=== PATIENT | male | born 1985 | race Caucasian/White ===

== ENCOUNTER 2017-09-13 17:48 | Inpatient (IN) | payer OTHER ==
[~2017-09-13] VITALS: Ht 185.4 cm; Wt 63.5 kg
--- NOTE | 2017-09-14 20:25 | NUR ---
Pre-admission assessment Patient is a 31-year old, male, seen at intake, AAOx4, no SOB and no anxiety noted at this time. Discussed with patient admission policies of the unit. Patient is coherent and able to respond to questions appropriately. Patient reported that he is homeless. Pt is ambulatory with steady gait. Pt reports using Klonopin daily and Alcohol intermittently. Pt also verbalized using Ritalin but stopped using "weeks ago." Vital signs taken and as follows: BC=249/58, P=67, O2 sat on RA=99%, RR=18, T=97.8. Pt verbalized instructions and teachings regarding disposal of narcotic and other controlled home meds, unit protocols such as taking of vital signs Q4H and handling and disposal of contraband.
[2017-09-14 21:03] LABS: *AMPHETAMINE, URINE NEGATIVE (NEGATIVE); *BARBITURATE, URINE NEGATIVE (NEGATIVE); *CANNABINOID, URINE NEGATIVE (NEGATIVE); *COCCAINE, URINE NEGATIVE (NEGATIVE); *OPIATE, URINE NEGATIVE (NEGATIVE); *PHENCYCLIDINE SCREEN,URINE NEGATIVE (NEGATIVE)
[2017-09-14] MEDS ORDERED: METH20TA9 PO (21:12)
[2017-09-14] MEDS ORDERED: [UNRECOGNIZED DRUG - CODE] OP (21:12)
[2017-09-14] MEDS ORDERED: FLUO-120 PO (21:12)
[2017-09-14] MEDS ORDERED: CLON1TAB PO (21:12)
[2017-09-14] MEDS ORDERED: LOPERAMIDE HCL 2 MG CAPSULE PO PRN ×2 (21:30)
[2017-09-14] MEDS ORDERED: ONDANSETRON 4 MG/2 ML VIAL IM PRN (21:30)
[2017-09-14] MEDS ORDERED: LORAZEPAM 2 MG/1 ML VIAL IM PRN (21:30)
[2017-09-14] MEDS ORDERED: CLONIDINE HCL 0.1 MG TABLET PO PRN (21:30)
[2017-09-14] MEDS ORDERED: DIAZEPAM 5 MG TABLET PO PRN (21:30)
[2017-09-14] MEDS ORDERED: ONDANSETRON ODT 4 MG TAB.RAPDIS SL PRN (21:30)
[2017-09-14] MEDS ORDERED: MAG HYDROX/AL HYDROX/SIMETH 30 ML LIQUID UDC PO PRN (21:30)
[2017-09-14] MEDS ORDERED: diphenhydrAMINE 50 MG CAPSULE PO PRN (21:30)
[2017-09-14] MEDS ORDERED: DIAZEPAM 10 MG TABLET PO PRN ×2 (21:30)
--- NOTE | 2017-09-14 22:00 | NUR ---
ADMISSION NOTE HT=6 FEET 1 INCH WT= 140 POUNDS B/P=114/56,T=98.1,P=78,R=16,O2 SAT=98%. CIWA=2. ADMITTING 31 Y/O MALE TO [facility] FOR BENZO DEPENDENCY.PT HAS BEEN TAKING KLONOPIN 1 MG TABLETS TID FOR THE PAST 10 YEARS.HE ALSO REPORTED TAKING VALIUM 5 MG TABLET X 1 BECAUSE "I RAN OUT OF KLONOPIN".PT ALSO REPORTS HX OF TAKING RITALIN 20 MG PO TID.HE SAID THAT HE STOPPED TAKING IT FOR SOME TIME AND DOES NOT WANT TO TAKE IT ANYMORE.PT REPORTED DRINKING WHISKEY AND SMOKING MARIJUANA 10 DAYS AGO.PT HAS PMH OF ANXIETY,DEPRESSION AND ADHD.NO HX OF SEIZURES NOTED.PT DENIES ANY ALLERGIES TO FOOD OR MEDICATIONS.PT IS A/O X 4,PLACED ON REGULAR DIET AND FULL CODE STATUS.SKIN IS INTACT,WARM AND DRY TO TOUCH;BREATHING IS EVEN AND NON LABORED;NO C/O SOB/WHEEZING NOTED;ABDOMEN IS SOFT AND PALPABLE WITH B/S PRESENT X 4.NO C/O N/V/D OR CONSTIPATION NOTED.PT ORIENTED TO ROOM AND UNIT,CARE PLAN AND SAFETY CHECKS INITIATED,DR URRUTIA NOTIFIED.EDUCATION PROVIDED ON HEP C,SMOKING CESSATION,SUBSTANCE ABUSE,SEIZURE D/O AND FALL RISK IN HOSPITALS. ALL SAFETY MEASURES IN PLACE PER HOSPITAL POLICY,BED IS LOCKED IN THE LOWEST POSITION WITH SIDE RAILS UP AND PADDED X 2.CALL LIGHT WITHIN REACH.NO C/O PAIN OR S/S OF ACUTE DISTRESS NOTED.WILL CONTINUE TO MONITOR FOR SAFETY. HX OF DRUG ABUSE KLONOPIN 1 MG PO TID FOR THE PAST 10 YEARS. LAST TAKEN 1 MG PO ON 09/14/17 AT 0900. PT HAS NO HX OF DETOX.THIS IS HIS FIRST TIME IN DETOX. PT HAS PLANS TO GO TO "[facility]" IN [place], FOR 90 DAYS,UPON DISCHARGE.
[2017-09-14] MEDS ORDERED: DIAZEPAM 10 MG TABLET ONE (22:22)
[2017-09-14 22:31] LABS: BASOPHILS % (AUTO) 0.4 % (0.0-2.0); EOSINOPHILS # (AUTO) 0.1 K/uL (0.0-0.7); EOSINOPHILS % (AUTO) 1.3 % (0.0-7.0); HEMATOCRIT 45.3 % (40-50); HEMOGLOBIN 14.5 G/DL (14.0-18.0); LYMPHOCYTES # (AUTO) 3.3 K/UL (0.8-4.8); MEAN CORPUSCULAR HGB CONC 32 g/dL (32.0-37.0); MEAN CORPUSCULAR VOLUME 81.1 FL (82.0-92.0); MONOCYTES # (AUTO) 0.6 K/UL (0.1-1.30); MONOCYTES % (AUTO) 7.9 % (0.0-11.0); NEUTROPHILS # (AUTO) 3.7 K/UL (1.8-8.9); NEUTROPHILS % (AUTO) 47.4 % (38.5-71.5); PLATELET COUNT (AUTO) 191 K/UL (150-450); RED BLOOD CELL COUNT(AUTO) 5.58 MIL/UL (4.7-6.1); WHITE BLOOD COUNT (AUTO) 7.7 K/UL (4.0-11.2)
[2017-09-14 22:46] LABS: ALANINE AMINOTRANSFERASE 21 U/L (16-63); ALKALINE PHOSPHATASE 67 U/L (50-136); ASPARTATE AMINOTRANSFERASE 15 U/L (15-37); BILIRUBIN,TOTAL 0.4 mg/dL (0.2-1.0); CARBON DIOXIDE 32 mmol/L (21-32); CHLORIDE 104 mmol/L (98-107); CREATININE 0.9 mg/dL (0.6-1.3); GLUCOSE 92 mg/dL (74-106); MAGNESIUM 2.2 mg/dL (1.8-2.4); POTASSIUM 4.4 mmol/L (3.5-5.1); TOTAL PROTEIN, SERUM 8.1 g/dL (6.4-8.2); UREA NITROGEN, BLOOD 25 mg/dL (7-18)
[2017-09-14 22:57] LABS: ETHANOL < 3 MG/DL (0-0)
[2017-09-14] MEDS ORDERED: DIAZEPAM 10 MG TABLET PO ONE (23:00)
[2017-09-15] VITALS: BP 110/62
[2017-09-15 04:00] VITALS: BP 114/69
--- NOTE | 2017-09-15 06:44 | NUR ---
END OF SHIFT PT IS 31 Y/O MALE ADMITTED TO [facility] FOR BENZO DEPENDENCY.PT HAS BEEN TAKING KLONOPIN 1 MG TABLETS TID FOR THE PAST 10 YEARS.HE ALSO REPORTED TAKING VALIUM 5 MG TABLET X 1 BECAUSE "I RAN OUT OF KLONOPIN".PT ALSO REPORTS HX OF TAKING RITALIN 20 MG PO TID.HE SAID THAT HE STOPPED TAKING IT FOR SOME TIME AND DOES NOT WANT TO TAKE IT ANYMORE.PT REPORTED DRINKING WHISKEY AND SMOKING MARIJUANA 10 DAYS AGO.PT HAS PMH OF ANXIETY,DEPRESSION AND ADHD.NO HX OF SEIZURES NOTED.PT DENIES ANY ALLERGIES TO FOOD OR MEDICATIONS.PT IS A/O X 4,PLACED ON REGULAR DIET AND FULL CODE STATUS. NO PRN MEDS GIVEN LAST NIGHT. LAST CIWA=1.PT SLEPT 4 HRS,FLUID INTAKE WAS 1500 MLS,VOIDED X 3,B/M X 1. ALL SAFETY MEASURES IN PLACE PER HOSPITAL POLICY, CALL LIGHT WITHIN REACH NO C/O PAIN OR S/S OF ACUTE DISTRESS NOTED.WILL CONTINUE TO MONITOR FOR SAFETY.
[2017-09-15 08:00] VITALS: BP 118/60
--- NOTE | 2017-09-15 08:10 | NUR ---
START OF SHIFT: RECEIVED PT A/O X 4. HE PRESENTS WITH ANXIOUS MOOD AND CONGRUENT AFFECT. HE C/O TROUBLE FORMING SENTENCES AND ANXIETY ALONG WITH RESTLESSNESS AND IRRITABILITY. CIWA 7. PRN VALIUM 5 MG PO GIVEN ORDERED. WILL MONITOR EFFECTIVENESS. ENCOURAGED INCREASED FLUIDS. PPD PLANTED O LFA. WILL CONTINUE TO PROVIDE SAFE AND SUPPORTIVE ENVIRONMENT.
[2017-09-15] MEDS: GABAPENTIN 300 MG CAPSULE PO SCH ×2 (08:12→20:15)
[2017-09-15] MEDS ORDERED: TUBERCULIN,PURIF.PROT.DERIV. 5 TU/0.1 ML TEST ID ONE (09:00)
--- NOTE | 2017-09-15 09:10 | NUR ---
PRN VALIUM EFFECTIVE. CIWA 3. WILL CONTINUE TO MONITOR AND OFFER SUPPORT.
--- NOTE | 2017-09-15 10:35 | NUR ---
Therapist prompted client to attend groups today. Client agreed to attend groups.
[2017-09-15] MEDS: DIAZEPAM 10 MG TABLET PO SCH ×3 (11:51→20:15)
[2017-09-15 12:00] VITALS: BP 119/50
--- NOTE | 2017-09-15 13:45 | NUR ---
Activity Group Note: Client participated in "Sequence" activity. Intervention goal was to increase task focus and leisure skills. Client's mood appeared to be euthymic with congruent affect. Client appeared distracted but was able to understand and complete the task. He stated, "I just want to get out of my room...this is great." Client initiated conversation with peers throughout activity. Client benefits from leisure activities and social interaction with peers. beater worker helper will continue to encourage participation in activity group.
[2017-09-15] MEDS: FLUOXETINE HCL 20 MG CAPSULE PO SCH (15:04)
[2017-09-15 16:00] VITALS: BP 118/63
--- NOTE | 2017-09-15 18:50 | NUR ---
START OF SHIFT: PT STARTED VALIUM TAPER TODAY. LAST CI 5 HE STATES THE DETOX MEDS ARE EFFECTIVE. HE REPORTED ANXIETY AND RESTLESSNESS INTERMITTENTLY THROUGHOUT SHIFT. HE ATTENDED A GROUP AND WAS COMPLIANT WITH INCREASED FLUIDS. WILL PASS SHIFT REPORT TO [facility] NIGHT NURSE. Addendum: 09/15/17 at 1853 by MICHELLE MENESES RN NOTE SHOULD READ END OF SHIFT
[2017-09-15 20:00] VITALS: BP 115/60
--- NOTE | 2017-09-15 20:00 | NUR ---
Start of Shift Pt is a 31 year old male admitted for Benzo dependence, placed on Valium taper. Pt reported using Klonopin 1mg TID and Ritalin 20mg TID. PMH: anxiety, depression and ADHD. NKA, regular diet, fall/seizure precautions and full code. Upon assessment, pt reports feeling anxious, restless, reports feeling chills, respirations even/unlabored, denies SOB/chest pain, denies n/v/d. Medications due. Safety measures in place, call light within reach, side rails up x2, bed locked and in low position. Will continue to monitor.
[2017-09-15] MEDS ORDERED: TRAZODONE 50 MG TABLET PO ONE (23:00)
--- NOTE | 2017-09-15 23:35 | NUR ---
PRN Administration Pt requests aid for sleep. Trazodone 50mg x1 administered as ordered. Safety measures in place, Will continue to monitor.
[2017-09-16] VITALS: BP 116/56
--- NOTE | 2017-09-16 | NUR ---
Vital Signs/CIWA deferred BP 116/56, pulse 69, resp 18, SpO2 98% room air, temp 98, no pain CIWA deferred due to pt sleeping, to assess while pt is awake as ordered. Safety measures in place, will continue to monitor.
--- NOTE | 2017-09-16 00:35 | NUR ---
PRN Reassessment Upon reassessment of Trazodone, pt is in room resting with eyes closed, respirations even/unlabored. Safety measures in place. Will continue to monitor.
[2017-09-16 04:00] VITALS: BP 121/62
--- NOTE | 2017-09-16 04:00 | NUR ---
Vital Signs/CIWA deferred BP 121/62, pulse 75, resp 16, SpO2 99% room air, temp 97.9, no pain CIWA deferred due to pt sleeping, to assess while pt is awake as ordered. Safety measures in place, will continue to monitor.
--- NOTE | 2017-09-16 07:00 | NUR ---
End of Shift Pt is a 31 year old male admitted for Benzo dependence, placed on Valium taper. Pt reported using Klonopin 1mg TID and Ritalin 20mg TID. PMH: anxiety, depression and ADHD. NKA, regular diet, fall/seizure precautions and full code. During shift, pt reported feeling anxious, restless, reported feeling chills scheduled taper medications administered, CIWA 6. Trazodone 50mg x1 administered as ordered. Pt slept for 6 hours, intake of 1000 ml PO, voids x2 and stool x1. Safety measures in place, call light within reach, side rails up x2, bed locked and in low position. Endorsed to day shift nurse.
--- NOTE | 2017-09-16 07:01 | NUR ---
Star of Shift Notes: Received patient in his room. Alert and verbally responsive. Able to make his needs known. Respirations even and unlabored. No SOB noted. SKin warm and dry to touch. Abdomen soft and non-distended. BS (+) in all 4 quadrants. No complains of N/V/D or constipation noted. Bladder non-distended. BS (+) in all 4 quadrants. No complains of dysuria. Ambulatory ad kumar with steady gait. Patient is a 31 year old male admitted for BZO and ritalin dependence who was placed on a 5-day Valium taper as ordered. No adverse reactions noted. Prior to admission, patient was using 1 mg of Klonopin TID and 20 mg of Ritalin TID. Has past medical hx of anxiety, depression, and ADHD. NKA. FULL CODE. Regular diet. Educated patient on his current plan of care for the day and his medication regimen. Encouraged oral fluid intake and encouraged group participation to learn new skills to prevent relapse. Will continue to monitor
[2017-09-16 07:07] LABS: HEPATITIS B SURFACE AG Negative (Negative)
[2017-09-16 08:00] VITALS: BP 100/63
[2017-09-16] MEDS: GABAPENTIN 300 MG CAPSULE PO SCH ×2 (08:14→20:43)
[2017-09-16] MEDS: FLUOXETINE HCL 20 MG CAPSULE PO SCH (08:14)
[2017-09-16] MEDS: DIAZEPAM 5 MG TABLET PO SCH ×4 (08:14→20:43)
[2017-09-16 12:00] VITALS: BP 100/57
[2017-09-16] MEDS: IBUPROFEN 600 MG TABLET PO PRN (13:30)
--- NOTE | 2017-09-16 13:30 | NUR ---
Motrin 600 mg PO given: Patient complained of 5/10 headache. Non-pharmacological interventions were provided but ineffective. Medicated patient with Motrin 600 mg PO as ordered. Will monitor for effectiveness.
--- NOTE | 2017-09-16 14:30 | NUR ---
Re-assessment: Per patient, PRN Motrin was effective in reducing patient's headache. PL 0/10.
--- NOTE | 2017-09-16 15:00 | NUR ---
Psych MD Communication: Notified Dr. Boyle (covering for Dr. Yeh) regarding patient's request for Trazodone. Orders noted and carried out.
[2017-09-16 16:00] VITALS: BP 119/75
--- NOTE | 2017-09-16 18:52 | NUR ---
End of Shift Notes: Patient continues to be on 5-day Valium taper as ordered. No adverse reactions noted. Patient is tolerating taper well. No adverse reactions noted. VS monitored closely. No significant abnormalities noted. Withdrawal symptoms were closely monitored. Initial CIWA 6, patient presented with tremors, anxiety and agitation. Last CIWA 4. Per patient, Valium has been effective in reducing her withdrawal symptoms. Participated in group and activities. Medicated patient with Motrin 600 mg PO as ordered for headache at 1330 with help after 1 hour. Compliant with care and treatment. All needs met and attended. Will continue to monitor closely.
--- NOTE | 2017-09-16 19:30 | NUR ---
START OF SHIFT Pt is a 31 y/o male admitted on 09/14/17 for benzo dependence. Pt was dependent on clonazepam 3-4 mg daily for 10 years. Pt is full code, NKA, regular diet, and fall/seizure precautions. No known seizure hx. Pt reports PMH of anxiety, depression and ADHD. Pt is on a 5 day Valium taper started on 09/15/17, tolerating well. Upon assessment pt is walking in hallway and presents with anxiety, restlessness, mild sweats, difficulty concentrating, abdominal "discomfort," anhedonia, headache, decreased appetite and mild sweats. Respirations 16, even and unlabored. Denies N/V/D. Denies chest pain or SOB. Medications due. Safety measures in place. Call light within reach. Will continue to monitor.
[2017-09-16 20:00] VITALS: BP 123/77
[2017-09-16] MEDS: MIRALAX 17 GM POWD.PACK PO PRN (20:43)
[2017-09-16] MEDS: ACETAMINOPHEN 325 MG TABLET PO PRN (20:43)
--- NOTE | 2017-09-16 20:43 | NUR ---
PRN TYLENOL 650 MG AND MIRALAX ADMINISTRATION Pt requests aid for BM, reports last BM was yesterday but it was small. Pt reports abdominal "discomfort" 03/31 and requests Tylenol. Denies N/V/D. Denies wanting Bentyl, states feeling is not similar to abdominal cramps.
--- NOTE | 2017-09-16 21:43 | NUR ---
PRN TYLENOL AND MIRALAX REASSESSMENT Pt reports improvement in pain 01/01. Will continue to monitor for BM. Safety measures in place. Call light within reach.
[2017-09-16] MEDS: TRAZODONE 50 MG TABLET PO PRN (21:53)
--- NOTE | 2017-09-16 21:53 | NUR ---
PRN TRAZODONE 25 MG ADMINISTRATION Pt requests Trazodone for sleep aid. Safety measures in place Call light within reach. Will continue to monitor.
--- NOTE | 2017-09-16 22:53 | NUR ---
PRN TRAZODONE REASSESSMENT Pt is awake in rec room watching TV, but states he is "more tired" and will sleep soon. Will continue to monitor.
[2017-09-16] MEDS: NAPHAZOLINE EACHEYE PRN (23:17)
--- NOTE | 2017-09-16 23:17 | NUR ---
PRN ROHTO COOL EYE DROPS ADMINISTRATION Pt requests eye drops for eye dryness and redness. Safety measures in place. Call light within reach. Will continue to monitor.
--- NOTE | 2017-09-17 | NUR ---
CIWA DEFERRED, VITALS REFUSED Pt is laying in bed with eyes closed. Respirations 16, even and unlabored. Safety measures in place Call light within reach. Will continue to monitor.
--- NOTE | 2017-09-17 04:00 | NUR ---
CIWA DEFERRED, VITALS REFUSED Pt is laying in bed with eyes closed. Vitals refused, CIWA deferred, to be assessed when pt is fully awake per orders. Respirations 16, even and unlabored. Safety measures in place Call light within reach. Will continue to monitor.
--- NOTE | 2017-09-17 07:22 | NUR ---
END OF SHIFT Pt is a 31 y/o male admitted on 09/14/17 for benzo dependence. Pt was dependent on clonazepam 3-4 mg daily for 10 years. Pt is full code, NKA, regular diet, and fall/seizure precautions. No known seizure hx. Pt reports PMH of anxiety, depression and ADHD. Pt is on a 5 day Valium taper started on 09/15/17, tolerating well. Pt presented with anxiety, restlessness, mild sweats, difficulty concentrating, abdominal "discomfort," anhedonia, headache, decreased appetite and mild sweats. Scheduled medications and PRN Tylenol, Miralax, Trazodone, and eye drops administered, effective in S/S of withdrawal as verbalized by pt. Last CIWA 3 at 1999, all other CIWAs deferred d/t pt laying in bed with eyes closed throughout the night. Pt slept 6 hours. Intake 2000 ml, void x 3, stool x 0. Safety measures in place. Call light within reach. Pts needs have been met. Endorsed to day shift nurse.
--- NOTE | 2017-09-17 07:32 | NUR ---
Start Of Shift Report received. Patient Pt is a 31 y/o male admitted on 09/14/17 for benzo dependence, under the care of Dr. Oropeza. Pt is on a 5 day Valium taper started on 09/15/17, tolerating well. Full Code, Regular Diet, No known allergies, continues on fall precautions and seizure precautions, skin noted intact. Past Medical history noted as: anxiety, depression and ADHD. Pts last CIWA score was 3 taken at 0400. Patient was given PRN Tylenol, Miralax, Trazodone and eye drops with Medications noted to be effective. Pt slept for a total of 6 hours last night, encouraged pt to drink more fluids to help facilitate the detox process. All safety measures in place, call light within reach will continue to monitor and provide support.
[2017-09-17 08:00] VITALS: BP 115/70
[2017-09-17] MEDS: GABAPENTIN 300 MG CAPSULE PO SCH ×2 (08:35→20:55)
[2017-09-17] MEDS: DIAZEPAM 5 MG TABLET PO SCH ×3 (08:35→20:55)
[2017-09-17] MEDS: ACETAMINOPHEN 325 MG TABLET PO PRN (08:57)
[2017-09-17] MEDS: FLUOXETINE HCL 20 MG CAPSULE PO SCH (08:57)
[2017-09-17 12:00] VITALS: BP 121/75
[2017-09-17] MEDS: HYDROXYZINE PAMOATE 25 MG CAPSULE PO PRN (14:00)
[2017-09-17] MEDS ORDERED: GABAPENTIN 300 MG CAPSULE PO SCH ×2 (15:00→21:00)
--- NOTE | 2017-09-17 15:16 | NUR ---
THerapist prompted client to attend group
[2017-09-17 16:00] VITALS: BP 128/68
[2017-09-17] MEDS ORDERED: DIAZEPAM 5 MG TABLET PO ONE (18:00)
--- NOTE | 2017-09-17 18:54 | NUR ---
End Of Shift Pt is a 31 y/o male admitted on 09/14/17 for benzo dependence, under the care of Dr. Oropeza. Pt is on a 5 day Valium taper started on 09/15/17, tolerating well. Full Code, Regular Diet, No known allergies, continues on fall precautions and seizure precautions, skin noted intact. , VS monitored closely q 4 hours. Withdrawal symptoms were closely monitored. Initial CIWA 5. Patient encouraged adequate PO fluid intake as tolerated. Patient presented with tremors and anxiety during the day. Last CIWA 3. Per patient, Valium has been helping him with his withdrawal symptoms. Pt ate all of his meals. Pt received PRN Vistaril for anxiety, and a onetime dose of Valium 5mg, medication effective. Patient encouraged to attend group therapies/sessions to learn new coping skills to recent relapse, patient denies SI/HI. Participated in group and therapy sessions. All needs met and attended. All safety measures in place endorsement given to shift superintendent caustic cresylate.
--- NOTE | 2017-09-17 19:30 | NUR ---
START OF SHIFT Pt is a 31 y/o male admitted on 09/14/17 for benzo dependence. Pt was dependent on clonazepam 3-4 mg daily for 10 years. Pt is full code, NKA, regular diet, and fall/seizure precautions. No known seizure hx. Pt reports PMH of anxiety, depression and ADHD. Pt is on a 5 day Valium taper started on 09/15/17, tolerating well. Upon assessment pt is walking in hallway and presents with anxiety, restlessness, mild sweats, difficulty concentrating, abdominal discomfort, anhedonia, dysphoria, mild headache, body aches, sensitivity to sound, dry eyes. Respirations 16, even and unlabored. Denies N/V/D. Denies chest pain or SOB. Medications due. Safety measures in place. Call light within reach. Will continue to monitor.
[2017-09-17 20:00] VITALS: BP 121/65
[2017-09-17] MEDS: NAPHAZOLINE EACHEYE PRN ×2 (20:40→22:52)
[2017-09-17] MEDS: IBUPROFEN 600 MG TABLET PO PRN (20:55)
[2017-09-17] MEDS: MIRALAX 17 GM POWD.PACK PO PRN (20:55)
--- NOTE | 2017-09-17 20:55 | NUR ---
PRN MOTRIN 600 MG, MIRALAX, AND EYE DROPS ADMINISTRATION Pt reports discomfort in abdomen 03/01 (denies pavithra, reports it is not described as cramps). Pt reports having one small stool in the morning and states "I typically go more frequent and they are much bigger," and requests Miralax. Pt also reports having dry eyes/redness and requests his eye drops for comfort. Safety measures in place. Call light within reach. Will continue to monitor.
--- NOTE | 2017-09-17 21:55 | NUR ---
PRN MOTRIN, MIRALAX AND EYE DROPS REASSESSMENT Pt reports improvement in abdominal discomfort 12/01. Pt reported immediate improvement after eye drop administration. Will continue to monitor for BM.
--- NOTE | 2017-09-17 22:00 | NUR ---
NEGATIVE TB Read TB in left forearm-negative. Administered on 09/15/17 at 0900.
[2017-09-17] MEDS: TRAZODONE 50 MG TABLET PO PRN (22:44)
[2017-09-18] VITALS: BP 125/68
--- NOTE | 2017-09-18 04:00 | NUR ---
CIWA DEFERRED AND VITALS REFUSED Pt is laying in bed with eyes closed, vitals refused, CIWA deferred, to be assessed when pt is fully awake per orders. Respirations 16, even and unlabored. Safety measures in place. Call light within reach. Will continue to monitor.
--- NOTE | 2017-09-18 07:27 | NUR ---
END OF SHIFT Pt is a 31 y/o male admitted on 09/14/17 for benzo dependence. Pt was dependent on clonazepam 3-4 mg daily for 10 years. Pt is full code, NKA, regular diet, and fall/seizure precautions. No known seizure hx. Pt reports PMH of anxiety, depression and ADHD. Pt is on a 5 day Valium taper started on 09/15/17, tolerating well. Pt presented with anxiety, restlessness, mild sweats, difficulty concentrating, abdominal discomfort, anhedonia, dysphoria, mild headache, body aches, sensitivity to sound. Scheduled medications and PRN Motrin, Trazodone, Miralax, and eye drops administered, effective in S/S of withdrawal AEB CIWA 7 lowered to CIWA 4 during shift. Pt verbalized improvement in all S/S of withdrawal. Pt slept 5 hours. Intake 700 ml, void x 1, stool x 1. Safety measures in place. Call light within reach. Pts needs have been met. Endorsed to day shift nurse.
--- NOTE | 2017-09-18 07:30 | NUR ---
Start Of Shift Report received. Patient Pt is a 31 y/o male admitted on 09/14/17 for benzo dependence, under the care of Dr. Oropeza. Pt is on a 5 day Valium taper started on 09/15/17, tolerating well. Full Code, Regular Diet, No known allergies, continues on fall precautions and seizure precautions, skin noted intact. Past Medical history noted as: anxiety, depression and ADHD. Pts last CIWA score was 4 taken at 0400. Patient was given PRN Motrin Miralax, Trazodone and eye drops with Medications noted to be effective. Pt slept for a total of 5 hours last night, encouraged pt to drink more fluids to help facilitate the detox process. All safety measures in place, call light within reach will continue to monitor and provide support.
[2017-09-18 08:00] VITALS: BP 108/69
[2017-09-18] MEDS: GABAPENTIN 300 MG CAPSULE PO SCH ×3 (09:22→20:10)
[2017-09-18] MEDS: DIAZEPAM 5 MG TABLET PO SCH ×2 (09:22→20:10)
[2017-09-18] MEDS: HYDROXYZINE PAMOATE 25 MG CAPSULE PO PRN ×2 (09:22→17:26)
[2017-09-18] MEDS: FLUOXETINE HCL 20 MG CAPSULE PO SCH (09:23)
[2017-09-18] MEDS: IBUPROFEN 600 MG TABLET PO PRN ×2 (09:23→20:10)
[2017-09-18 12:00] VITALS: BP 112/76
[2017-09-18] MEDS ORDERED: MAGNESIUM CITRATE 296 ML BOTTLE PO ONE (13:00)
[2017-09-18] MEDS ORDERED: CLONIDINE HCL 0.1 MG TABLET PO PRN (13:00)
[2017-09-18] MEDS: SENNOSIDES 1 TABLET PO SCH ×2 (13:54→21:00)
[2017-09-18] MEDS: ACETAMINOPHEN 325 MG TABLET PO PRN (15:03)
[2017-09-18 16:00] VITALS: BP 124/71
--- NOTE | 2017-09-18 18:56 | NUR ---
End Of Shift Pt is a 31 y/o male admitted on 09/14/17 for benzo dependence, under the care of Dr. Oropeza. Pt is on a 5 day Valium taper started on 09/15/17, tolerating well. Full Code, Regular Diet, No known allergies, continues on fall precautions and seizure precautions, skin noted intact. VS monitored closely q 4 hours. Withdrawal symptoms were closely monitored. Initial CIWA 5. Patient encouraged adequate PO fluid intake as tolerated. Patient presented with tremors and anxiety during the day. Last CIWA 3. Per patient, Valium has been helping him with his withdrawal symptoms. Pt ate all of his meals. Pt received PRN Motrin, Tylenol, Vistaril for anxiety, and a onetime dose of Valium 5mg, medication effective. Patient encouraged to attend group therapies/sessions to learn new coping skills to recent relapse, patient denies SI/HI. Participated in group and therapy sessions. All needs met and attended. All safety measures in place endorsement given to shift supervisor.
--- NOTE | 2017-09-18 19:30 | NUR ---
START OF SHIFT Pt is a 31 y/o male admitted on 09/14/17 for benzo dependence. Pt was dependent on clonazepam 3-4 mg daily for 10 years. Pt is full code, NKA, regular diet, and fall/seizure precautions. No known seizure hx. Pt reports PMH of anxiety, depression and ADHD. Pt is on a 5 day Valium taper started on 09/15/17, tolerating well. Upon assessment pt presents with anxiety, restlessness, difficulty concentrating, abdominal discomfort, diarrhea, anhedonia, dysphoria, mild headache, body aches, sensitivity to sound, dry eyes, fatigue, agitation, sense of panic, "skin crawling." Respirations 16, even and unlabored. Denies N/V. Denies chest pain or SOB. Medications due. Safety measures in place. Call light within reach. Will continue to monitor.
[2017-09-18 20:00] VITALS: BP 109/58
[2017-09-18] MEDS: DICYCLOMINE HCL 20 MG TABLET PO PRN (20:10)
--- NOTE | 2017-09-18 20:10 | NUR ---
KAL CORTEZ AND ADAM, SCHEDULED SENOKOT HELD Pt reports having multiple episodes of diarrhea and complains of pain in abdomen and anus area r/t diarrhea. Pt also reports having generalized discomfort. Pain overall 03/31. Scheduled Senokot held d/t present diarrhea. Safety measures in place. Call light within reach. Will continue to monitor.
--- NOTE | 2017-09-18 21:10 | NUR ---
PRN ADAM AND DIEGO REASSESSMENT Pt reports overall improvement in pain to 3/10, which pt states is tolerable. Pt reports still having discomfort r/t diarrhea. Safety measures in place. Call light within reach. Will continue to monitor.
[2017-09-18] MEDS: NAPHAZOLINE EACHEYE PRN (21:18)
--- NOTE | 2017-09-18 21:18 | NUR ---
PRN EYE DROP ADMINISTRATION Pt complains of eye redness/dryness and requests eye drops. Pt reports immediate relief. Will continue to monitor.
[2017-09-18] MEDS: TRAZODONE 50 MG TABLET PO PRN (23:38)
--- NOTE | 2017-09-18 23:38 | NUR ---
X 1 5 MG VALIUM AND PRN TRAZODONE ADMINISTRATION CIWA 12. One time order for Valium 5 mg ordered. Pt presents with anxiety, agitation, sweats, mild tremors, restlessness, sensitivity to sounds, loose thoughts. Pt also requests sleep aid. Safety measures in place. Call light within reach. Will continue to monitor.
[2017-09-18] MEDS ORDERED: DIAZEPAM 5 MG TABLET PO ONE (23:45)
[2017-09-18] MEDS ORDERED: DIAZEPAM 5 MG TABLET ONE (23:51)
[2017-09-19] VITALS: BP 121/70
--- NOTE | 2017-09-19 00:38 | NUR ---
5 MG VALIUM X 1 AND PRN TRAZODONE REASSESSMENT Pt is laying in bed watching TV, appears drowsy. Pt verbalizes overall improvement in S/S of withdrawal, but anxiety and visual disturbances are present. CIWA 5. Pt states he will likely fall asleep "very soon." Safety measures in place. Call light within reach. Will continue to monitor.
--- NOTE | 2017-09-19 04:00 | NUR ---
VITALS REFUSED AND CIWA DEFERRED Pt is laying in bed with eyes closed, CIWA deferred, to be assessed when pt is fully awake per orders. Pt refused vitals. Respirations 16, even and unlabored. Safety measures in place. Call light within reach. Will continue to monitor.
--- NOTE | 2017-09-19 07:10 | NUR ---
END OF SHIFT Pt is a 31 y/o male admitted on 09/14/17 for benzo dependence. Pt was dependent on clonazepam 3-4 mg daily for 10 years. Pt is full code, NKA, regular diet, and fall/seizure precautions. No known seizure hx. Pt reports PMH of anxiety, depression and ADHD. Pt is on a 5 day Valium taper started on 09/15/17, tolerating well. Pt presented with anxiety, restlessness, difficulty concentrating, abdominal discomfort, diarrhea, anhedonia, dysphoria, mild headache, sweats, body aches, sensitivity to sound, visual disturbances, mil fine tremors, dry eyes, fatigue, agitation, sense of panic, "skin crawling." Scheduled medications, x1 5 mg Valium and PRN Bentyl, Motrin and eye drops administered, effective in S/S of withdrawal AEB CIWA 12 lowered to 5 during shift. Scheduled Senokot held d/t diarrhea. Pt slept 6 hours. Intake 1514 ml, void x 3, stool x 0. Safety measures in place. Call light within reach. Pts needs have been met. Endorsed to day shift nurse.
--- NOTE | 2017-09-19 07:36 | NUR ---
Start of shift note; Received report from night nurse. 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 Patient was placed on a 5 day Valium taper. Patient reported history of anxiety, depression, ADHD. NKA, on regular diet and on full code status. Patient last CIWA is 5 at 0400. PRN Bentyl, Motrin were given last night both noted to be effective. All safety measures secured. Will continue to monitor patient.
[2017-09-19 08:00] VITALS: BP 102/62
[2017-09-19] MEDS: GABAPENTIN 300 MG CAPSULE PO SCH ×3 (08:04→20:23)
[2017-09-19] MEDS: DICYCLOMINE HCL 20 MG TABLET PO PRN (08:04)
[2017-09-19] MEDS: FLUOXETINE HCL 20 MG CAPSULE PO SCH (08:04)
[2017-09-19] MEDS: IBUPROFEN 600 MG TABLET PO PRN ×2 (08:04→20:23)
--- NOTE | 2017-09-19 08:04 | NUR ---
PRN medications; Patient is complaining of stomach cramps and generalized pain rated 6/10. PRN Bentyl 20mg PO given for ABD spasms/cramps and PRN Ibuprofen 600mg PO given for pain. Will continue to monitor patient for effectiveness of medication.
[2017-09-19] MEDS ORDERED: DIAZEPAM 5 MG TABLET PO SCH (09:00)
--- NOTE | 2017-09-19 09:04 | NUR ---
Re-assessment; Patient is AOX4. Patient denies ABD cramps and denies pain at this time. PRN medications noted to be effective.
[2017-09-19 12:00] VITALS: BP 104/63
--- NOTE | 2017-09-19 14:35 | NUR ---
Therapist prompted client about group times. Client stated he would attend all groups today.
--- NOTE | 2017-09-19 15:37 | NUR ---
PRN medication; Patient appears agitated and anxious. Relaxation techniques observed, noted to be ineffective. Patient refused to take Vistaril for anxiety. PRN Clonidine 0.1mg PO given for agitation and ADHD as per MD order. Will continue to monitor patient.
[2017-09-19 16:00] VITALS: BP 106/59
--- NOTE | 2017-09-19 16:37 | NUR ---
Re-assessment; Patient stated "medication helped me, i feel better". PRN medication noted to be effective.
[2017-09-19] MEDS: ACETAMINOPHEN 325 MG TABLET PO PRN (17:28)
[2017-09-19] MEDS: HYDROXYZINE PAMOATE 25 MG CAPSULE PO PRN (17:28)
--- NOTE | 2017-09-19 17:37 | NUR ---
PRN medication; Patient is complaining of generalized pain rated 6/10, pain is causing him to have anxiety. Relaxation techniques ineffective. PRN Tylenol 650mg PO given for pain and Vistaril PO given as ordered for anxiety. will closely monitor patient.
--- NOTE | 2017-09-19 18:02 | NUR ---
End of shift note; Patient is AOX4. 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 Patient was placed on a 5 day Valium taper. Patient reported history of anxiety, depression, ADHD. NKA, on regular diet and on full code status. Patient's last CIWA score is 2 at 1600. Patient remained compliant with treatment plan and medication regime. Medications were effective in reducing withdrawal symptoms. Patient is medically cleared for discharge tomorrow. All safety measures secured. Met all needs.
--- NOTE | 2017-09-19 18:37 | NUR ---
Re-assessment; Patient denies pain at htis time, PRN Tylenol noted to be effective. Patient is calm and comfortable at this time, no further anxiety noted, PRN Vistaril noted to be effective.
--- NOTE | 2017-09-19 19:35 | NUR ---
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 Patient has a medical history of anxiety, depression and ADHD. Patient is FULL code, NKA, and on a regular diet. Patient has completed a 5 day Ativan taper, tolerated well, and is scheduled for discharge tomorrow. Upon assessment patient is alert and oriented x4, breathing is even and unlabored, no distress noted at this time. Patient is on fall and seizure precautions with no past history of seizure. Safety measures are in place, patient's bed locked in low position, side rails up x2, call light within reach. Will continue to monitor.
[2017-09-19 20:00] VITALS: BP 98/52
--- NOTE | 2017-09-19 20:23 | NUR ---
PRN MOTRIN Patient complains of mild to moderate stomach cramps, 4/10, and requested PRN Motrin for relief. PRN Motrin was given PO at 2022. Patient's breathing is even and unlabored, safety measures in place. Will reassess in one hour.
[2017-09-19] MEDS: SENNOSIDES 1 TABLET PO SCH (21:00)
--- NOTE | 2017-09-19 21:23 | NUR ---
PRN MOTRIN REASSESSMENT Patient reports relief from stomach cramps, rates pain 0/10. PRN Motrin was effective. Safety measures in place, call light within reach, will continue to monitor.
[2017-09-19] MEDS: NAPHAZOLINE EACHEYE PRN (21:26)
--- NOTE | 2017-09-19 21:26 | NUR ---
PRN ROHTO COOL LUBRICANT EYE DROPS Patient complains of dry, red eyes and requests lubricant eye drops. One drop of Rohto Cool lubricant eye drop administered to each eye. Safety measures in place, call light within reach. Will reassess in one hour.
--- NOTE | 2017-09-19 21:43 | NUR ---
PRN TRAZODONE Patient complains of inability to sleep. PRN Trazodone 50mg one time dose given PO. Safety measures in place, call light within reach, will reassess in one hour.
[2017-09-19] MEDS ORDERED: TRAZODONE 50 MG TABLET PO ONE (21:45)
--- NOTE | 2017-09-19 22:26 | NUR ---
KAL FINE COOL REASSESSMENT Patient reports that his eyes are no longer dry, eye redness has dissipated; eye drops effective. Safety measures in place. Will continue to monitor.
--- NOTE | 2017-09-19 22:43 | NUR ---
PRN TRAZODONE REASSESSMENT Patient has fallen asleep, resting in bed with eyes closed, respirations 16/min, even and unlabored. Safety measures in place, call light within reach, will continue to monitor.
[2017-09-20] VITALS: BP 103/48
[2017-09-20] MEDS: HYDROXYZINE PAMOATE 25 MG CAPSULE PO PRN ×2 (00:11→08:29)
--- NOTE | 2017-09-20 00:12 | NUR ---
PRN Vistaril Pt reports feeling anxious and unable to relax and fall asleep. Encouraged relaxation. PRN Vistaril administered.
--- NOTE | 2017-09-20 01:12 | NUR ---
PRN VISTARIL REASSESSMENT Patient is alseep in bed, eyes closed, respirations 16/min, even and unlabored. Safety measures in place, bed locked in low position, side rails up x2, call light within reach. Will continue to monitor.
--- NOTE | 2017-09-20 04:10 | NUR ---
0400 VITALS REFUSED, CIWA DEFERRED Patient refused to be woken up for 0400 vitals, respirations are 16/min, even and unlabored. Patient is alseep, CIWA score deferred, to be assessed when patient is awaker per protocol. Safety measures in place, call light within reach, will continue to monitor.
--- NOTE | 2017-09-20 07:18 | NUR ---
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 Patient has a medical history of anxiety, depression and ADHD. Patient is FULL code, NKA, and on a regular diet. Patient has completed a 5 day Ativan taper, tolerated well, and is scheduled for discharge today. Patient received the following PRNs: Motrin, lubricating eye drops, Trazodone, and Vistaril. Last CIWA score was 3. Patient slept for 4 hours, total intake of 2047mL, void x5, stool x0. Patient is on fall and seizure precautions with no past history of seizure. Safety measures are in place, patient's bed locked in low position, side rails up x2, call light within reach. Will endorse to day shift.
--- NOTE | 2017-09-20 07:40 | NUR ---
PT REPORTS CHEST PAIN Pt reporting chest pain, states feels like pressure in center of his chest for last 30 minutes. Vital signs WNL. Also reports bilateral hip and bilateral thigh pain, 07/01. Dr. Olguin notified. Stat EKG ordered.
--- NOTE | 2017-09-20 07:40 | NUR ---
START OF SHIFT 31 year old male, admitted for medically supervised detox of benzo dependence. History of anxiety, depression, ADHD. NKA, Regular diety, full code. Received report from night RN. Pt received PRN Motrin, eye drops, Trazadone, and Vistaril. Valium taper completed. Slept 4 hours. Last CIWA 3. 0740 nursing rounds, pt complaint of chest pain/pressure and bilateral hip and bilateral thigh pain. Dr. Olguin notified and stat EKG ordered. Bed in low position and locked, side rails up x 2, call light within reach. Will medicate for pain per PRN medications and will follow up with EKG results.
[2017-09-20 08:00] VITALS: BP 101/59
--- NOTE | 2017-09-20 08:00 | NUR ---
EKG done and shown to Dr. Olguin.
[2017-09-20] MEDS: GABAPENTIN 300 MG CAPSULE PO SCH (08:29)
[2017-09-20] MEDS: FLUOXETINE HCL 20 MG CAPSULE PO SCH (08:30)
[2017-09-20] MEDS: IBUPROFEN 600 MG TABLET PO PRN (08:30)
[2017-09-20] MEDS ORDERED: FAMO20TA8 PO (08:48)
[2017-09-20] MEDS ORDERED: HYDR-3895 PO (08:48)
[2017-09-20] MEDS ORDERED: IBUP-1955 PO (08:48)
[2017-09-20] MEDS ORDERED: GABA-534 PO (08:48)
[2017-09-20] MEDS ORDERED: CLON0.1T14 PO (08:48)
[2017-09-20] MEDS ORDERED: DICY20TA28 PO (08:48)
--- NOTE | 2017-09-20 10:00 | NUR ---
Discharge papers and medication bag signed.
[2017-09-20] MEDS ORDERED: METHOCARBAMOL 750 MG TABLET PO PRN (10:15)
--- NOTE | 2017-09-20 10:16 | NUR ---
Robaxin 750mg po prn given for muscle aches.
--- NOTE | 2017-09-20 10:40 | NUR ---
DISCHARGE NOTE. 31 year old male, admitted for medically supervised detox of benzo dependence. History of anxiety, depression, ADHD. NKA, Regular diety, full code. 0800 vital signs stable, BP 101/59, pulse 84, RR 19, O2 sat 99 percent, given PRN robaxin by charge aide for generalized pain prior to discharge. Skin intact. Denies suicidal or homicidal ideation. All discharge paperwork signed and dated. Pt was discharged from [facility] on 09/20/17 at 1040. Pt left the building with all of his medications and belongs as well as prescriptions. notified.
== END 2017-09-20 10:40 | disposition other institution (70) | DRG 895 ==
LOC: SRC 09-14 19:17
PROVIDERS: ADMIT Internal Medicine; ATTEND Internal Medicine
DX: F13.230 Sedative, hypnotic or anxiolytic dependence with withdrawal, uncomplicated (principal); F33.2 Major depressive disorder, recurrent severe without psychotic features; Z81.3 Family history of other psychoactive substance abuse and dependence; Z80.9 Family history of malignant neoplasm, unspecified; F90.9 Attention-deficit hyperactivity disorder, unspecified type; F10.21 Alcohol dependence, in remission; F12.10 Cannabis abuse, uncomplicated; E86.0 Dehydration; F41.9 Anxiety disorder, unspecified; F14.21 Cocaine dependence, in remission; Z79.899 Other long term (current) drug therapy; R79.89 Other specified abnormal findings of blood chemistry; G47.00 Insomnia, unspecified
CPT/HCPCS: 36415; 70030-TC; 80307; 80346; 83735; 85025; 86580; 86592; 86705; 86803; 87340; 87806; 93005; G0480